=== PATIENT | female | born 1960 | race Caucasian/White ===

== ENCOUNTER → 2017-03-20 | Outpatient (CLI) | payer MEDICARE ==
[~2017-03-20] MED LIST: ADULT LOW DOSE81 MG PO; COZAAR25 MG PO; DEPAKOTE250 MG PO; GABAPENTIN300 MG PO; GLUCOPHAGE1000 MG PO; KEPPRA XR500 MG PO; LASIX20 M1 PO; LIPITOR40 MG PO; LISINOPRIL5 MG PO; LOPRESSOR50 MG PO; NIACINAMIDE PO; NITROSTAT0.4 MG PO; PLAVIX75 MG PO; PROTONIX40 MG PO; TRICOR145 MG PO; TYLENOL-DPS650 MG PO
== END | disposition home or self-care (01) ==
LOC: RAD.S 14:07
DX: Z12.31 Encounter for screening mammogram for malignant neoplasm of breast (principal)